=== PATIENT | female | born 1965 | race Two or more races ===

== ENCOUNTER 2024-09-20 12:54 | Inpatient (IN) | payer OTHER, SELFPAY ==
[~2024-09-20] VITALS: Ht 157.5 cm; Wt 55.0 kg
--- NOTE | 2024-09-20 13:14 | ED.PDOC ---
HPI Comments 59 y/o F, presents to the ED for CC of palpitations. Patient states, she has been experiencing palpitations with associated symptoms of headache and nausea [id number]. 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 Patient denies chest pain, shortness of breath, fever, chills, or dizziness. No other symptoms or modifying factors at this time. Time Seen by MD: 13:00 Reviewed Notes: Nurses Notes, Medications, Allergies Information Source: Patient Mode of Arrival: Ambulatory Severity: Moderate Timing: Hours Duration: Since onset Prehospital treatment: Other (aspirin) Onset: At Rest Cardiac Risk Factors: None PE Risk Factors: None History of: None Modifying Factors: Nothing Associated Signs and Symptoms: SOB, None (nausea) Past Medical History PAST MEDICAL HISTORY: Denies Surgical History: Denies all surgeries PRODUCTION COORDINATOR History: Denies all PRODUCTION COORDINATOR Hx Family History Family History: Unknown Social History Smoker: Non-Smoker Alcohol: Denies ETOH Use Drugs: Denies Drug Use Lives In: Home Constitutional: denies: chills, diaphoresis, fatigue, fever, malaise, sweats, weakness, others EENTM: denies: blurred vision, double vision, ear bleeding, ear discharge, ear drainage, ear pain, ear ringing, eye pain, eye redness, hearing loss, mouth pain, mouth swelling, nasal discharge, nose bleeding, nose congestion, nose pain, photophobia, tearing, throat pain, throat swelling, voice changes, others Respiratory: denies: cough, hemoptysis, orthopnea, SOB at rest, shortness of breath, SOB with excertion, stridor, wheezing, others Cardiovascular: reports: irregular heart beat, palpitations; denies: chest pain, dizzy spells, diaphoresis, Dyspnea on exertion, edema, left arm pain, lightheadedness, PND, syncope, others Gastrointestinal: reports: nausea; denies: abdomen distended, abdominal pain, blood streaked bowels, constipated, diarrhea, dysphagia, difficulty swallowing, hematemesis, melena, poor appetite, poor fluid intake, rectal bleeding, rectal pain, vomiting, others Genitourinary: denies: abnormal vagina bleeding, burning, dyspareunia, dysuria, flank pain, frequency, hematuria, incontinence, pain, , vagina discharge, urgency, others Neurological: reports: headache; denies: dizziness, fainting, left sided numbness, left sided weakness, numbness, paresthesia, pre-existing deficit, right sided numbness, right sided weakness, seizure, speech problems, tingling, tremors, weakness, others Musculoskeletal: denies: back pain, gout, joint pain, joint swelling, muscle pain, muscle stiffness, neck pain, others Integumetry: denies: bruises, change in color, change in hair/nails, dryness, laceration, lesions, lumps, rash, wounds, others Allergic/Immunocompromised: denies: Difficulty Healing, Frequent Infections, Hives, Itching, others Hematologic/Lymphatic: denies: anemia, blood clots, easy bleeding, easy bruising, swollen glands, others Endocrine: denies: excessive hunger, excessive sweating, excessive thirst, excessive urination, flushing, intolerance to cold, intolerance to heat, unexplained weight gain, unexplained weight loss, others Psychiatric: denies: anxiety, bipolar disorder, depression, hopeless, panic disorder, schizophrenia, sleepless, suicidal, others All Other Systems: Reviewed and Negative Physical Exam General Appearance: Moderate Distress HEENT: Normal ENT Inspection, Pharynx Normal, TMs Normal Neck: Full Range of Motion, Non-Tender, Normal, Normal Inspection Respiratory: Chest Non-Tender, Lungs Clear, No Accessory Muscle Use, No Respiratory Distress, Normal Breath Sounds Cardiovascular: Tachycardia Breast Exam: Deferred Gastrointestinal: No Organomegaly, Non Tender, No Pulsatile Mass, Normal Bowel Sounds, Soft Genitalia: Deferred Pelvic: Deferred Rectal: Deferred Extremities: No calf tenderness, Normal capillary refill, Normal inspection, Normal range of motion, Non-tender, No pedal edema Musculoskeletal : Apperance: Normal 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 Was a procedure done?: No CP Differential Dx Differential Diagnosis: A-fib, A-Flutter, Angina, Anxiety / Panic Attack, Electrolyte Disorder, Sinus Tachycardia X-Ray, Labs, Meds, VS Vital Signs Date Time Temp Pulse Resp B/P (MAP) Pulse Ox O2 Delivery O2 Flow Rate FiO2 09/20/24 13:34 154 09/20/24 13:15 142 Lab Test 09/20/24 13:45 09/20/24 13:30 Range/Units Urine Color Pending Urine Clarity Pending Urine pH Pending Urine Specific [place] Pending Urine Protein Pending Urine Ketones Pending Urine Blood Pending Urine Nitrite Pending Urine Bilirubin Pending Urine Urobilinogen Pending Urine Leukocyte Esterase Pending Urine RBC Pending Urine Microscopic WBC Pending Urine Squamous Epithelial Cells Pending Urine Bacteria Pending Urine Glucose Pending White Blood Count 8.0 4.4-10.8 10^3/uL Red Blood Count 5.17 4.0-5.20 10^6/uL Hemoglobin 15.0 12.2-16.2 g/dL Hematocrit 44.9 36.0-46.0 % Mean Corpuscular Volume 86.8 80.0-100.0 fL Mean Corpuscular Hemoglobin 29.0 28.0-32.0 pg Mean Corpuscular Hemoglobin Concent 33.5 32.0-36.0 g/dL Red Cell Distribution Width 14.8 H 11.8-14.3 % Platelet Count 237 140-450 10^3/uL Mean Platelet Volume 8.9 6.9-10.8 fL Neutrophils (%) (Auto) 53.4 37.0-80.0 % Lymphocytes (%) (Auto) 36.2 10.0-50.0 % Monocytes (%) (Auto) 8.0 0.0-12.0 % Eosinophils (%) (Auto) 1.5 0.0-7.0 % Basophils (%) (Auto) 0.9 0.0-2.0 % Neutrophils # (Auto) 4.3 1.6-8.6 10 ^3/uL Lymphocytes # (Auto) 2.9 0.4-5.4 10 ^3/uL Monocytes # (Auto) 0.6 0-1.3 10 ^3/uL Eosinophils # (Auto) 0.1 0-0.8 10 ^3/uL Basophils # (Auto) 0.1 0-0.2 10 ^3/uL Nucleated Red Blood Cells 0.1 % Sodium Level 139 136-145 mmol/L Potassium Level 4.4 3.5-5.1 mmol/L Chloride Level 107 98-107 mmol/L Carbon Dioxide Level 24 20-31 mmol/L Anion Gap 8 5-15 Blood Urea Nitrogen Pending Creatinine Pending Glomerular Filtration Rate Calc Pending BUN/Creatinine Ratio Pending Serum Glucose Pending Calcium Level 10.1 8.7-10.4 mg/dL Troponin I High Sensitivity Pending [facility] [id number] [facility] [address] Ph: [phone] DIAGNOSTIC IMAGING Diagnostic Imaging Report : [id number] Signed PATIENT: CATRACHO FERGUSON ACCT: [id number] UNIT: [id number] : 1965 LOC: ER ROOM / BED: / AGE / SEX: 59 / F ADM STATUS: REG ER SERVICE 1308 ORDERING PHYSICIAN: YO BASURTO MD PROCEDURE(s): CXRP - CHEST PORTABLE REASON: sob ORDER NUMBER(s): [id number], ACCESSION NUMBER(s): [id number] CHEST RADIOGRAPH Indication: sob Technique: Single frontal view of the chest was obtained Comparison: None FINDINGS: Lines and Tubes: None Lungs: No focal consolidation. Pleura: No effusion. No pneumothorax. Cardiomediastinal contours: Unremarkable Bones: No acute osseous abnormality. IMPRESSION: No acute cardiopulmonary disease. ATED BY: CHIRSTIANO BAUTISTA MD DICTATED DATE/TIME: 09/20/24 1341 SIGNED BY: CHRISTIANO BAUTISTA MD SIGNED DATE/TIME: 09/20/24 1341 CC: Patient alert. Complaining of palpitations. Tachycardia. Answering questions. Never had this kind of symptom in the past. Was given aspirin in the field. Continues to have increased heart rate. EKG does show a junctional rhythm. Was given Ativan. Possibly will need metoprolol. Echocardiogram. Cardiology consultation. Reviewed her history. Explained to the patient. Continue cardiac monitoring. Time of 1ST Reevaluation: 13:30 Reevaluation 1ST: Unchanged Patient Education/Counseling: Diagnosis, Treatment Family Education/Counseling: Diagnosis, Treatment Additional Information I reviewed the following notes from patient's past medical encounters: 11/02/15 DX: BACK PAIN The following tests were ordered, and results were reviewed by me: TROPONIN, CBC, UA, EKGX3, CXR, ECHO 2D US I reviewed and agreed with the following test results read by other providers: CXR, ECHO 2D US Additional Information was gathered from interviewing the following independent historians: SON IN LAW I discussed treatment and results with medical personnel and: FAMILY Departure 1 Departure Time of Disposition: 13:25 Impression: Primary Impression: Junctional tachycardia Additional Impression: Mitral valve disease Disposition: ADMITTED INPATIENT Admit to: Med Surg Condition: Guarded Critical Care Note Critical Care Time?: Yes (90 min-critical care time only) Stability Stability form required: No Heart Score Heart Score: Heart Score Response (Comments) Value History Slightly Suspicious 0 EKG Normal 0 Age 45-64 1 Risk Factors 1 or 2 risk factors 1 Troponin N/A 0 Total 2 I personally scribed for YO BASURTO MD ([email or web address]) on 09/20/24 at 13:14. E lectronically submitted by Kina Lao ([email or web address]). I personally scribed for YO BASURTO MD ([email or web address]) on 09/20/24 at 14:07. Electronically submitted by Kina Lao ([email or web address]). YO BASURTO MD Sep 20, 2024 13:14
[2024-09-20] MEDS: LORazepam 2MG/ML-1ML VIAL IV ONE (13:15)
--- NOTE | 2024-09-20 13:43 | DVH ---
CHEST RADIOGRAPH Indication: sob Technique: Single frontal view of the chest was obtained Comparison: None FINDINGS: Lines and Tubes: None Lungs: No focal consolidation. Pleura: No effusion. No pneumothorax. Cardiomediastinal contours: Unremarkable Bones: No acute osseous abnormality. IMPRESSION: No acute cardiopulmonary disease.
[2024-09-20 13:47] LABS: Basophils # (auto) 0.1 10 ^3/uL (0-0.2); Basophils % (auto) 0.9 % (0.0-2.0); Eosinophils # (auto) 0.1 10 ^3/uL (0-0.8); Eosinophils % (auto) 1.5 % (0.0-7.0); Hematocrit 44.9 % (36.0-46.0); Lymphocytes # (auto) 2.9 10 ^3/uL (0.4-5.4); Lymphocytes % (auto) 36.2 % (10.0-50.0); Mean Corpuscular Hgb Conc. 33.5 g/dL (32.0-36.0); Mean Corpuscular Volume 86.8 fL (80.0-100.0); Monocytes # (auto) 0.6 10 ^3/uL (0-1.3); Neutrophils # (auto) 4.3 10 ^3/uL (1.6-8.6); Neutrophils % (auto) 53.4 % (37.0-80.0); Nucleated Red Blood Cells % 0.1 %; Platelet Count (auto) 237 10^3/uL (140-450); Red Blood Cells 5.17 10^6/uL (4.0-5.20); Red Cell Distribution Width 14.8 % (11.8-14.3)
[2024-09-20 13:58] LABS: Potassium 4.4 mmol/L (3.5-5.1); Sodium 139 mmol/L (136-145)
[2024-09-20 13:59] LABS: Anion Gap 8 (5-15); Calcium 10.1 mg/dL (8.7-10.4); Carbon Dioxide 24 mmol/L (20-31)
[2024-09-20 14:00] LABS: Chloride 107 mmol/L (98-107)
[2024-09-20 14:04] LABS: BUN/Creatinine Ratio 12.1 (10.0-20.0); Blood Urea Nitrogen 11 mg/dL (9-23)
[2024-09-20 14:09] LABS: Glucose 121 mg/dL (74-106)
[2024-09-20 14:09] LABS: Urine Bacteria FEW /hpf (None Seen); Urine Blood Negative /uL (Negative); Urine Clarity Clear (Clear); Urine Protein, UAD Negative (Negative); Urine Specific Gravity 1.003 (1.001-1.035); Urine Squamous Epithelial Cell FEW /hpf (<5); Urine Urobilinogen Normal (Negative); Urine pH 6.5 (5.0-9.0)
[2024-09-20 14:10] VITALS: PULSE 126; RESP 20; O2SAT 98
[2024-09-20 14:12] LABS: Urine Color Light-Yellow (Yellow)
[2024-09-20] MEDS: METOPROLOL TARTRATE 25 MG TAB PO ONE (14:30)
[2024-09-20] MEDS ORDERED: MORPHINE SULFATE INJ 2 MG/ml SYRG IV PRN ×2 (17:30)
[2024-09-20] MEDS ORDERED: ALBUTEROL SULF 2.5 MG/0.5ML(0.5%) NEB SOLN NEB PRN (17:30)
[2024-09-20] MEDS ORDERED: NITROGLYCERIN 0.4 MG SL TAB SL PRN (17:30)
[2024-09-20] MEDS ORDERED: ONDANSETRON HCL 4 MG/2 ML VIAL IV PRN (17:30)
[2024-09-20] MEDS ORDERED: IPRATROPIUM BROM 0.5 MG/2.5ML INH SOL NEB PRN (17:30)
[2024-09-20] MEDS ORDERED: HYDROcodone-ACET 5/325MG TAB PO PRN (17:30)
[2024-09-20] MEDS ORDERED: DOCUSATE SOD 100 MG CAP PO PRN (17:30)
[2024-09-20] MEDS ORDERED: ACETAMINOPHEN 500 MG TAB or CAP PO PRN (17:30)
--- NOTE | 2024-09-20 17:30 | DVHHP2 ---
History of Present Illness Reason for Visit: Dizziness, generalized weakness History of Present Illness Patient was a 59-year-old female presenting to the emergency room with reports of new onset of dizziness and shortness of breath. Patient also does report having some palpitations as well, but denies having any chest pain. Upon arrival in the emergency room she was found to be in a junctional tachycardia with a heart rate irregular, reaching 160 beats per minute. Patient had improvement with her rhythm with beta-regino therapy, now in sinus rhythm. Significant history of the patient includes CVA, tobacco use. 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 Past Surgical History: None Smoke: 1 pack per day ALCOHOL: none Drugs: None Lives: with Family Domestic Violence: Neg Review of Systems Constitutional: Yes: Weakness; No: Fever, Chills, Sweats, Malaise, Other Eyes: No: Pain, Vision change, Conjunctivae inflammation, Eyelid inflammation, Other, Redness ENT: No: Ear pain, Ear discharge, Nose pain, Nose discharge, Nose congestion, Mouth pain, Mouth swelling, Throat pain, Throat swelling, Other Respiratory: Shortness of breath Cardiovascular: Palpitations Gastrointestinal: No: Nausea, Vomiting, Abdominal Pain, Diarrhea, Constipation, Melena, Hematochezia, Other Genitourinary: No Dysuria, No Frequency, No Incontinence, No Hematuria, No Retention, No Other Musculoskeletal: No: other, neck pain, shoulder pain, arm pain, back pain, hand pain, leg pain, foot pain Skin: No: Rash, Lesions, Jaundice, Bruising, Other Neurological: No: Weakness, Numbness, Incoordination, Change in speech, Confusion, Seizures, Other Allergies: Coded Allergies: NO KNOWN ALLERGIES (Unverified , 09/20/24) Exam Vital Signs Vital Signs Date Time Temp Pulse Resp B/P (MAP) Pulse Ox O2 Delivery O2 Flow Rate FiO2 09/20/24 16:00 75 09/20/24 15:01 18 103/69 (80) 98 09/20/24 14:10 Room Air* 0 21 09/20/24 14:09 98.1 98.1 General Appearance: Alert, Oriented X3, Cooperative, No acute distress HEENT: Atraumatic, PERRLA Respiratory: Clear to auscultation, Normal air movement Cardiovascular: Normal S1, Normal S2 Abdominal: Normal bowel sounds, No hepatospenomegaly Extremities: No clubbing, No cyanosis, No edema, Normal pulses Neuro: Normal gait, Normal speech Psych/Mental Status: Mood NL Labs/Xrays Labs Test 09/20/24 13:45 09/20/24 13:30 Range/Units Urine Color Light-yellow Yellow Urine Clarity Clear Clear Urine pH 6.5 5.0-9.0 Urine Specific [place] 1.003 1.001-1.035 Urine Protein Negative Negative Urine Ketones Negative Negative Urine Blood Negative Negative /uL Urine Nitrite Negative Negative Urine Bilirubin Negative Negative Urine Urobilinogen Normal Negative mg/dL Urine Leukocyte Esterase Negative Negative /uL Urine RBC <1 0 - 4 /hpf Urine Microscopic WBC 0-5 /HPF Urine Squamous Epithelial Cells Few <5 /hpf Urine Bacteria Few H None Seen /hpf Urine Glucose Normal Normal mg/dL White Blood Count 8.0 4.4-10.8 10^3/uL Red Blood Count 5.17 4.0-5.20 10^6/uL Hemoglobin 15.0 12.2-16.2 g/dL Hematocrit 44.9 36.0-46.0 % Mean Corpuscular Volume 86.8 80.0-100.0 fL Mean Corpuscular Hemoglobin 29.0 28.0-32.0 pg Mean Corpuscular Hemoglobin Concent 33.5 32.0-36.0 g/dL Red Cell Distribution Width 14.8 H 11.8-14.3 % Platelet Count 237 140-450 10^3/uL Mean Platelet Volume 8.9 6.9-10.8 fL Neutrophils (%) (Auto) 53.4 37.0-80.0 % Lymphocytes (%) (Auto) 36.2 10.0-50.0 % Monocytes (%) (Auto) 8.0 0.0-12.0 % Eosinophils (%) (Auto) 1.5 0.0-7.0 % Basophils (%) (Auto) 0.9 0.0-2.0 % Neutrophils # (Auto) 4.3 1.6-8.6 10 ^3/uL Lymphocytes # (Auto) 2.9 0.4-5.4 10 ^3/uL Monocytes # (Auto) 0.6 0-1.3 10 ^3/uL Eosinophils # (Auto) 0.1 0-0.8 10 ^3/uL Basophils # (Auto) 0.1 0-0.2 10 ^3/uL Nucleated Red Blood Cells 0.1 % Sodium Level 139 136-145 mmol/L Potassium Level 4.4 3.5-5.1 mmol/L Chloride Level 107 98-107 mmol/L Carbon Dioxide Level 24 20-31 mmol/L Anion Gap 8 5-15 Blood Urea Nitrogen 11 9-23 mg/dL Creatinine 0.91 0.550-1.02 mg/dL Glomerular Filtration Rate Calc 73 >90 mL/min BUN/Creatinine Ratio 12.1 10.0-20.0 Serum Glucose 121 H 74-106 mg/dL Calcium Level 10.1 8.7-10.4 mg/dL Troponin I High Sensitivity 20 </=34 ng/L Assessment/Plan Assessment/Plan Impression: -new onset of atrial tachycardia -near-syncope -history of CVA -nicotine dependence Plan: -admit to telemetry unit -echocardiogram -cardiology consultation -repeat troponin -continue beta-regino therapy with metoprolol tartrate 25 mg p.o. b.i.d. -reassess for discharge in a.m. Total time spent with patient discussing and formulating plan of care: 35 minutes. This medical document was created using an electronic medical record system with [employer] dictation system. Although this document has been carefully reviewed, there may still be some phonetic and typographical errors. These areas are purely typographical due to imperfections of the software programs, and do not reflect any compromise in the patient's medical care. 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 09/20/24 Verified Pain 17:23 Notify Md Of Changes 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 09/20/24 Verified 24 Hours 17:23 Emergency Dysrhythmia [facility] 09/20/24 Verified Protocol 17:23 Rhythm Strips Once [facility] 09/20/24 Verified Every Shift 17:23 Oxygen By Nasal RT 09/20/24 Verified Cannula 17:23 Thyroid Stimulating LAB 09/20/24 Verified Hormone 17:23 Troponin-I Hs LAB 09/20/24 Verified 17:23 Morphine Sulfate PHA 09/20/24 Verified Injection 17:30 Hydrocodone-Acet PHA 09/20/24 Verified 5/325mg Tab ([place] 17:30 Acetaminophen Tablet PHA 09/20/24 Verified (Tylenol Tablet) 17:30 Ondansetron Hcl PHA 09/20/24 Verified (Zofran) 17:30 Docusate Sodium PHA 09/20/24 Verified Capsule (Colace 17:30 Albuterol Medneb PHA 09/20/24 Verified (Ventolin Medneb) 17:30 Ipratropium Medneb PHA 09/20/24 Verified (Atrovent Medneb) 17:30 Cardiac DIET 09/20/24 Verified Diet-2gna,Lofat,Lochol Dinner Date of Service: Sep 20, 2024 Billing Provider: RANDAL DILLON NP Common Visit Codes: [id number] INP/OBS CARE (HIGH) RANDAL DILLON NP Sep 20, 2024 17:30
--- NOTE | 2024-09-20 18:16 | DVHSR ---
APPROVED REPORT EXAM: Two-dimensional and M-mode echocardiogram with Doppler and color Doppler. Blood Pressure: 103/69 mmHg INDICATION EF RISK FACTORS Height: 62, Weight: 125 DIMENSIONS LVDd4.1 (3.8-5.7cm)LA (2D)3.2 (1.9-4.0cm)Aortic Root3.1 (2.0-3.7cm) LVDs2.8 (2.5-4.0cm)LA (MM) (1.9-4.0cm)Aortic Cusp Exc1.7 (1.5-2.0cm) EF (%) 61.0 (55-70%)Rt. Atrium3.9 (1.9-4.0cm)Asc. Aorta cm IVSd1.2 (0.7-1.1cm)RV (D) (1.8-2.4cm) PWd1.0 (0.7-1.1cm) Mitral Valve MitralMitral Stenosis E wave0.57m/sMV Mean GR.mmHg A wave0.44m/sMV Peak GR.60mmHg E/A ratio1.32D MVAcm2 DECEL [id number] 1/2 [id number] IVRTmsDop MVA4.46cm2 Aortic Valve Aortic ValveAortic Stenosis V10.81m/[place] Mean GR.3mmHg V21.22m/[place] Peak GR.6mmHg LVOT Diameter2.0 (1.8-2.4cm)Doppler AVA2.08cm2 AI P 1/2 Ynce361.02ms Pulmonic Valve V20.66m/s Tricuspid Valve TR Velocity1.96m/s [id number] Conclusion Technically good study. Sinus rhythm. Mild concentric LVH. Normal chamber sizes. Valves are normal. EF of 60% with normal RV function. Mild TR. Mild AI. No pericardial effusion masses or vegetations.
--- NOTE | 2024-09-20 19:25 | DVHINCON2 ---
Date Seen: Sep 20, 2024 Referring Physician [facility] Reason for Consultation New onset atrial tachycardia History of Present Illness This is a 59-year-old female patient who presents to the emergency room with chief complaint of palpitations and generalized weakness. The patient reports that she was working at [employer], and at approximately 10:30 a.m. today began to develop symptoms such as palpitations and generalized weakness. Coworkers offered to called EMS, but the patient refused. The patient called her son-in-law instead who came and brought her to the emergency room for further evaluation. Initial twelve lead electrocardiogram revealed junctional tachycardia with heart rate in 140s. No rate control medications were given in the emergency room and the patient is back in a normal sinus rhythm at time of assessment. Initial troponin level of 20ng/L with up trend and peak level at 165ng/L. Significant past medical history includes CVA in 2015 and tobacco use. Past Medical History Past medical history reviewed. No other significant than mentioned above. Past Surgical History Denies Family History Family history reviewed. Social History Patient has a 15 pack-year history, smokes approximately pack per day Patient denies any illicit drug use Patient denies any alcohol use Allergies: Coded Allergies: NO KNOWN ALLERGIES (Unverified , 09/20/24) Home Meds Patient denies taking any prescribed medications Current Medications Current Medications Medications (Trade) Dose Ordered Sig/Laura Route PRN Reason Start Time Stop Time Status Last Admin Nitroglycerin (Ntrostat Sublingual) 0.4 mg Q5MINP PRN SL FOR CHEST PAIN 09/20/24 17:30 UNV Morphine Sulfate 2 mg Q30M PRN IV FOR CHEST PAIN 09/20/24 17:30 UNV Morphine Sulfate 1 mg Q4HPRN PRN IV SEVERE PAIN (7-10 PAIN SCALE) 09/20/24 17:30 UNV Acetaminophen/ Hydrocodone Bitart ([place] 5/325MG Tab) 1 tab Q6HPRN PRN PO MODERATE PAIN (4-6 PAIN SCALE) 09/20/24 17:30 UNV Acetaminophen (Tylenol Tablet Or Capsule) 500 mg Q8HP PRN PO PAIN SCALE 1-3 OR TEMP>100.4 09/20/24 17:30 UNV Ondansetron HCl (Zofran) 4 mg Q6HP PRN IV NAUSEA / VOMITING 09/20/24 17:30 UNV Docusate Sodium (Colace Capsule) 100 mg BID PRN PO FOR CONSTIPATION 09/20/24 17:30 UNV Albuterol (Ventolin Medneb) 2.5 mg Q4HPRN PRN NEB SHORTNESS OF BREATH 09/20/24 17:30 UNV Ipratropium [place] (Atrovent Medneb) 0.5 mg Q4HPRN PRN NEB SHORTNESS OF BREATH 09/20/24 17:30 UNV Review of Systems Constitutional: Generalized weakness Ears, Nose, & Throat: No symptom reported Eyes: No symptom reported Neurological: No symptoms reported Pulmonary/Respiratory: No symptoms reported Cardiovascular: Palpitations Gastrointestinal: No symptom reported Genitourinary: No symptom reported Musculoskeletal: No symptom reported Skin: No symptom reported Psychiatric: No symptom reported Endocrine: No symptom reported Hematologic/Lymphatic: No symptom reported Vital Signs Vital Signs Date Time Temp Pulse Resp B/P (MAP) Pulse Ox O2 Delivery O2 Flow Rate FiO2 09/20/24 18:01 85 18 90/58 (69) 98 09/20/24 14:10 Room Air* 0 21 09/20/24 14:09 98.1 98.1 Physical Exam General Appearance: Cooperative. Well-developed. Well-nourished. No acute distress. Pulmonary/Respiratory: Clear, bilateral breaths sounds. Cardiovascular/Chest: Regular rate and rhythm. Peripheral Pulses: 2+ Radial (R). 2+ Radial (L). 2+ Pedal (R). 2+ Pedal (L) Abdominal Exam: Normal bowel sounds. Ankle Exam: Negative ankle edema Lower extremities: Negative lower extremity edema Neuro/Mental Status: A/OX4, coherent. Thoughts/Psych: Normal thought pattern. Appropriate mood and affect. Good judgment and insight. Appearance: No acute distress. Skin Exam: Normal inspection. Normal color. Warm and dry. Labs/Diagnostic Data Labs Test 09/20/24 18:19 09/20/24 13:45 09/20/24 13:30 Range/Units Troponin I High Sensitivity 165 *H </=34 ng/L Thyroid Stimulating Hormone (TSH) 0.97 0.55-4.78 uIU/mL Urine Color Light-yellow Yellow Urine Clarity Clear Clear Urine pH 6.5 5.0-9.0 Urine Specific [place] 1.003 1.001-1.035 Urine Protein Negative Negative Urine Ketones Negative Negative Urine Blood Negative Negative /uL Urine Nitrite Negative Negative Urine Bilirubin Negative Negative Urine Urobilinogen Normal Negative mg/dL Urine Leukocyte Esterase Negative Negative /uL Urine RBC <1 0 - 4 /hpf Urine Microscopic WBC 0-5 /HPF Urine Squamous Epithelial Cells Few <5 /hpf Urine Bacteria Few H None Seen /hpf Urine Glucose Normal Normal mg/dL White Blood Count 8.0 4.4-10.8 10^3/uL Red Blood Count 5.17 4.0-5.20 10^6/uL Hemoglobin 15.0 12.2-16.2 g/dL Hematocrit 44.9 36.0-46.0 % Mean Corpuscular Volume 86.8 80.0-100.0 fL Mean Corpuscular Hemoglobin 29.0 28.0-32.0 pg Mean Corpuscular Hemoglobin Concent 33.5 32.0-36.0 g/dL Red Cell Distribution Width 14.8 H 11.8-14.3 % Platelet Count 237 140-450 10^3/uL Mean Platelet Volume 8.9 6.9-10.8 fL Neutrophils (%) (Auto) 53.4 37.0-80.0 % Lymphocytes (%) (Auto) 36.2 10.0-50.0 % Monocytes (%) (Auto) 8.0 0.0-12.0 % Eosinophils (%) (Auto) 1.5 0.0-7.0 % Basophils (%) (Auto) 0.9 0.0-2.0 % Neutrophils # (Auto) 4.3 1.6-8.6 10 ^3/uL Lymphocytes # (Auto) 2.9 0.4-5.4 10 ^3/uL Monocytes # (Auto) 0.6 0-1.3 10 ^3/uL Eosinophils # (Auto) 0.1 0-0.8 10 ^3/uL Basophils # (Auto) 0.1 0-0.2 10 ^3/uL Nucleated Red Blood Cells 0.1 % Sodium Level 139 136-145 mmol/L Potassium Level 4.4 3.5-5.1 mmol/L Chloride Level 107 98-107 mmol/L Carbon Dioxide Level 24 20-31 mmol/L Anion Gap 8 5-15 Blood Urea Nitrogen 11 9-23 mg/dL Creatinine 0.91 0.550-1.02 mg/dL Glomerular Filtration Rate Calc 73 >90 mL/min BUN/Creatinine Ratio 12.1 10.0-20.0 Serum Glucose 121 H 74-106 mg/dL Calcium Level 10.1 8.7-10.4 mg/dL Assessment Junctional tachycardia, now normal sinus rhythm NSTEMI, likely type II secondary to above History of CVA in 2014 Tobacco use Plan/Recommendation We will continue with following plan/recommendations (Dr. Gomez): Case reviewed and discussed with . Transthoracic echocardiogram reveals EF 60%. We will initiate the patient on a low-dose beta-regino as tolerated. We will also initiate the patient on oral magnesium. Continue close cardiac surveillance. Obtain labs: TSH and UDS. Thank you for allowing us to care for this patient. Please call with any questions or concerns. Critical care time spent: 43 minutes This medical document was created using an electronic medical record system with voice recognition software and computerized dictation system. Although this document has been carefully reviewed, there might still be some phonetic and typographical errors. Occasional wrong-word or ``sound-alike substitutions may have occurred due to the inherent limitations of voice recognition software. These areas are purely typographical due to imperfections of the software programs and do not reflect any compromise in the patient's medical care. Please read the chart carefully and recognize, using context, where these substitutions have occurred. Plan discussed with: Patient NYHA Physical activity limitations: NA Date of Service: Sep 20, 2024 Billing Provider: ARGELIA GREEN Cardiology Common Codes: 87409-TDXCVFT INP/OBS CARE (High) Cardiology Consultation Codes: 54194-MVLZAXNYU CONSULT <45MIN ARGELIA GREEN Sep 20, 2024 19:25
[2024-09-20 19:37] VITALS: PULSE 82; RESP 17; O2SAT 95
[2024-09-20 20:45] LABS: Amphetamine Screen, Urine Neg (NEGATIVE); Barbiturate Scree,Urine Neg (NEGATIVE); Benzodiazephine Screen, Urine Neg (NEGATIVE); Cannabinoid Screen, Urine Neg (NEGATIVE); Cocaine Screen, Urine Neg (NEGATIVE); Opiate Scree,Urine Neg (NEGATIVE); Phencyclidine Screen, Urine Neg (NEGATIVE)
[2024-09-20] MEDS: METOPROLOL TARTRATE 25 MG TAB PO SCH (22:00)
--- NOTE | 2024-09-21 00:33 | ECG ---
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
[2024-09-21 01:20] VITALS: BP 102/57; PULSE 82; RESP 17; TEMP 97.7; O2SAT 95
[2024-09-21 06:32] LABS: Basophils # (auto) 0.1 10 ^3/uL (0-0.2); Basophils % (auto) 0.9 % (0.0-2.0); Eosinophils # (auto) 0.2 10 ^3/uL (0-0.8); Eosinophils % (auto) 3.3 % (0.0-7.0); Hematocrit 40.5 % (36.0-46.0); Hemoglobin 13.8 g/dL (12.2-16.2); Lymphocytes # (auto) 2.4 10 ^3/uL (0.4-5.4); Lymphocytes % (auto) 41.2 % (10.0-50.0); Mean Corpuscular Hemoglobin 29.7 pg (28.0-32.0); Mean Corpuscular Hgb Conc. 34.1 g/dL (32.0-36.0); Mean Corpuscular Volume 86.9 fL (80.0-100.0); Monocytes # (auto) 0.5 10 ^3/uL (0-1.3); Monocytes % (auto) 8.9 % (0.0-12.0); Neutrophils # (auto) 2.6 10 ^3/uL (1.6-8.6); Neutrophils % (auto) 45.7 % (37.0-80.0); Platelet Count (auto) 200 10^3/uL (140-450); Red Blood Cells 4.67 10^6/uL (4.0-5.20); Red Cell Distribution Width 14.4 % (11.8-14.3); White Blood Cell 5.8 10^3/uL (4.4-10.8)
[2024-09-21 06:37] LABS: Anion Gap 6 (5-15); Carbon Dioxide 26 mmol/L (20-31); Sodium 142 mmol/L (136-145)
[2024-09-21 06:38] LABS: Calcium 9.6 mg/dL (8.7-10.4)
[2024-09-21 06:43] VITALS: O2SAT 96
[2024-09-21 06:43] LABS: Glucose 93 mg/dL (74-106); Magnesium 2.3 mg/dL (1.6-2.6); Triglycerides 95 mg/dL (< 150)
[2024-09-21 06:44] LABS: LDL Cholesterol 179 mg/dL (< 100)
[2024-09-21 06:45] LABS: Chloride 110 mmol/L (98-107); Cholesterol 233 mg/dL (< 200); HDL Cholesterol 51 mg/dL (40-59)
[2024-09-21 06:54] LABS: BUN/Creatinine Ratio 17.1 (10.0-20.0); Blood Urea Nitrogen 14 mg/dL (9-23)
[2024-09-21 08:00] VITALS: PULSE 59; RESP 12; O2SAT 95
[2024-09-21] MEDS: MAGNESIUM OXIDE 400 MG TAB PO SCH (10:56)
[2024-09-21 12:00] VITALS: BP 107/62; PULSE 62; RESP 11; TEMP 98.4; O2SAT 98
--- NOTE | 2024-09-21 12:10 | DVHDS2 ---
Discharge Summary Date of Admission Sep 20, 2024 at 17:23 Date of Discharge: Sep 21, 2024 Admitting Diagnosis Junctional tachycardia Labs/Diagnostic Data: Laboratory Results Test 09/21/24 05:56 09/20/24 22:30 09/20/24 13:45 White Blood Count 5.8 10^3/uL (4.4-10.8) Red Blood Count 4.67 10^6/uL (4.0-5.20) Hemoglobin 13.8 g/dL (12.2-16.2) Hematocrit 40.5 % (36.0-46.0) Mean Corpuscular Volume 86.9 fL (80.0-100.0) Mean Corpuscular Hemoglobin 29.7 pg (28.0-32.0) Mean Corpuscular Hemoglobin Concent 34.1 g/dL (32.0-36.0) Red Cell Distribution Width 14.4 % (11.8-14.3) Platelet Count 200 10^3/uL (140-450) Mean Platelet Volume 8.8 fL (6.9-10.8) Neutrophils (%) (Auto) 45.7 % (37.0-80.0) Lymphocytes (%) (Auto) 41.2 % (10.0-50.0) Monocytes (%) (Auto) 8.9 % (0.0-12.0) Eosinophils (%) (Auto) 3.3 % (0.0-7.0) Basophils (%) (Auto) 0.9 % (0.0-2.0) Neutrophils # (Auto) 2.6 10 ^3/uL (1.6-8.6) Lymphocytes # (Auto) 2.4 10 ^3/uL (0.4-5.4) Monocytes # (Auto) 0.5 10 ^3/uL (0-1.3) Eosinophils # (Auto) 0.2 10 ^3/uL (0-0.8) Basophils # (Auto) 0.1 10 ^3/uL (0-0.2) Nucleated Red Blood Cells 0.0 % Sodium Level 142 mmol/L (136-145) Potassium Level 4.0 mmol/L (3.5-5.1) Chloride Level 110 mmol/L (98-107) Carbon Dioxide Level 26 mmol/L (20-31) Anion Gap 6 (5-15) Blood Urea Nitrogen 14 mg/dL (9-23) Creatinine 0.82 mg/dL (0.550-1.02) Glomerular Filtration Rate Calc 82 mL/min (>90) BUN/Creatinine Ratio 17.1 (10.0-20.0) Serum Glucose 93 mg/dL (74-106) Hemoglobin A1c 5.6 % A1C (<5.7) Calcium Level 9.6 mg/dL (8.7-10.4) Magnesium Level 2.3 mg/dL (1.6-2.6) Triglycerides Level 95 mg/dL (< 150) Cholesterol Level 233 mg/dL (< 200) LDL Cholesterol 179 mg/dL (< 100) HDL Cholesterol 51 mg/dL (40-59) Thyroid Stimulating Hormone (TSH) 1.23 uIU/mL (0.55-4.78) Troponin I High Sensitivity 145 ng/L (</=34) Urine Color Light-yellow (Yellow) Urine Clarity Clear (Clear) Urine pH 6.5 (5.0-9.0) Urine Specific [place] 1.003 (1.001-1.035) Urine Protein Negative (Negative) Urine Ketones Negative (Negative) Urine Blood Negative /uL (Negative) Urine Nitrite Negative (Negative) Urine Bilirubin Negative (Negative) Urine Urobilinogen Normal mg/dL (Negative) Urine Leukocyte Esterase Negative /uL (Negative) Urine RBC <1 /hpf (0 - 4) Urine Microscopic WBC /HPF (0-5) Urine Squamous Epithelial Cells Few /hpf (<5) Urine Bacteria Few /hpf (None Seen) Urine Glucose Normal mg/dL (Normal) Urine Opiates Screen Neg (NEGATIVE) Urine Fentanyl Screen Neg (NEGATIVE) Urine Barbiturates Screen Neg (NEGATIVE) Urine Phencyclidine Screen Neg (NEGATIVE) Urine Amphetamines Screen Neg (NEGATIVE) Urine Benzodiazepines Screen Neg (NEGATIVE) Urine Cocaine Screen Neg (NEGATIVE) Urine Cannabinoids Screen Neg (NEGATIVE) Other Laboratory Tests 09/21/24 05:56 Brief Hx & Hospital Course: History of Present Illness Patient was a 59-year-old female presenting to the emergency room with reports of new onset of dizziness and shortness of breath. Patient also does report having some palpitations as well, but denies having any chest pain. Upon arrival in the emergency room she was found to be in a junctional tachycardia with a heart rate irregular, reaching 160 beats per minute. Patient had improvement with her rhythm with beta-regino therapy, now in sinus rhythm. Significant history of the patient includes CVA, tobacco use. Course of hospitalization: Patient was echocardiogram which was unremarkable. Troponins were elevated, equivocal, probably secondary to demand ischemia from tachycardia. Cardiology consultation was placed with patient's heart rate controlled with beta-regino therapy. Patient has been cleared for discharge from Cardiology standpoint. Patient has remained sinus rhythm since conversion in the emergency room. She will be discharged home and is instructed to follow up with the discharge Clinic in one week as well as make an appointment with her PCP in the next 2-3 weeks. Patient was agreeable with discharge plan. All questions answered. Physical examination General: Alert and Oriented x3. No acute distress. Well-nourished. Eyes: EOMI. Anicteric. HENT: Moist mucous membranes. Lungs: Clear to auscultation bilaterally. No accessory muscle use. Cardiovascular: Regular rate and rhythm. No murmur. No JVD. Abdomen: Soft, non-tender and non-distended. No palpable masses. Extremities: No edema. Non-tender. Skin: No rashes or lesions. Warm. Neurologic: No focal neurological deficits. CN II-XII grossly intact, but not individually tested. Psychiatric: Cooperative. Appropriate mood and affect. Total time spent with patient discussing and formulating plan of care: 35 minutes. This medical document was created using an electronic medical record system with [address] dictation system. Although this document has been carefully reviewed, there may still be some phonetic and typographical errors. These areas are purely typographical due to imperfections of the software programs, and do not reflect any compromise in the patient's medical care. Consults/Reason for consult Cardiology: NSTEMI type 2, atrial tachycardia Condition at Discharge: Fair Final Diagnosis/Problems List Junctional tachycardia NSTEMI type 2 secondary to tachycardia Nicotine dependence Discharge Disposition: Home Discharge Instruct/Medications Diet: Cardiac 2g Na,low cholest Activity: No Restrictions, As Tolerated Follow Up/Referral: Follow up with PCP in 1-2 weeks DC clinic in one week Medications: Toprol-XL 25 mg p.o. daily Mag oxide 400 mg p.o. daily 36 Discharge Statement: "Patient was advised to return to the ER or call 911 if any headaches, dizziness, shortness of breath, chest pain, abdominal pain, bleeding, fevers, or worsening of medical condition. Patient was counseled about treatment plan, medications, possible side effects, patientverbalized understanding. All questions were answered to the best of my ability. This discharge took greater then 30 minutes in planning, reviewing documentation, counseling the patient, and discussing with other team members." ASSESSMENT ASSESSMENT Assessment Junctional tachycardia Date of Service: Sep 21, 2024 Billing Provider: RANDAL DILLON NP Common Visit Codes: 15255-QNR/OBS DISCH DAY >30min RANDAL DILLON NP Sep 21, 2024 12:10
== END 2024-09-21 12:35 | disposition home or self-care (01) | DRG 282 ==
LOC: ER 12:54 → TELE 17:23
PROVIDERS: ADMIT Nurse Practitioner Acute Care; ATTEND Nurse Practitioner Acute Care
DX: I47.19 Other supraventricular tachycardia (principal); I21.A1 Myocardial infarction type 2; Z87.891 Personal history of nicotine dependence; Z86.73 Personal history of transient ischemic attack (TIA), and cerebral infarction without residual deficits
CPT/HCPCS: 36415; 71045; 80048; 80061; 80307; 81001; 83036; 83735; 84443; 84484; 85025; 93005; 93306; 99291; 99292; G0378